=== PATIENT | male | born 1950 | race Caucasian/White ===

== ENCOUNTER → 2021-01-03 | Outpatient (CLI) | payer MEDICARE ==
--- NOTE | 2021-01-03 16:15 | CT ---
EXAMINATION TYPE: CT foot RT wo con DATE OF EXAM: 01/03/2021 COMPARISON: None HISTORY: Post op right metatarsal bunion sx CT DLP: 334.3 mGycm Automated exposure control for dose reduction was used. Unenhanced CT of the right foot was performed in the axial coronal and sagittal planes with bone and soft tissue window settings submitted. FINDINGS: Noted at the first tarsal metatarsal joint of postoperative changes of fusion with fixation plate and screws in place. There is adjacent soft tissue swelling noted. No significant callus formation is id entified at this time. No bony destructive process is seen. Postsurgical changes are also noted at th e base of the proximal phalanx of the great toe. There is moderate hallux valgus deformity seen at th e first metatarsal phalangeal joint. No evidence for acute fracture or dislocation. Intertarsal degen erative changes noted. Spur formation is seen. Soft tissue swelling noted to overlie the dorsum of th e foot. IMPRESSION: POSTOPERATIVE CHANGES DISCUSSED ABOVE WITHOUT EVIDENCE OF BONY DESTRUCTIVE PROCESS. NO SIGNIFICANT CALLUS FORMATION SEEN AT THE TARSAL METATARSAL SURGICAL SITE. HALLUX VALGUS DEFORMITY OF THE FIRST M ETATARSAL PHALANGEAL JOINT. DORSAL SOFT TISSUE SWELLING NOTED.
== END | disposition home or self-care (01) ==
LOC: RADCTMAIN 14:35
PROVIDERS: ATTEND Podiatrist
DX: M20.11 Hallux valgus (acquired), right foot (principal); M79.89 Other specified soft tissue disorders; Z98.890 Other specified postprocedural states

== ENCOUNTER 2022-05-01 09:38 | Day surgery (SDC) | payer MEDICARE ==
[2022-04-30 11:06] VITALS: BMI 27.7
[~2022-05-01 09:38] MED LIST: LACTATED RINGERS 1,000 ML IV SCH; LIDOCAINE 1% (10MG/ML) FOR IV START INTRADERMA PRN
[2022-05-01 09:59] VITALS: TEMP 97.6
[2022-05-01] MEDS ORDERED: PROPOFOL 10 MG/ML 20 ML VIAL IV ONE (10:45)
--- NOTE | 2022-05-01 10:59 | P.PCN ---
Date of Procedure: 05/01/22 Procedure(s) Performed: BRIEF HISTORY: Patient is a 71-year-old pleasant male scheduled for an elective colonoscopy as a part of screening for colorectal neoplasia. PROCEDURE PERFORMED: Colonoscopy with biopsy and snare polypectomy.. PREOPERATIVE DIAGNOSIS: Screening for colon cancer. IV sedation per Anesthesia. PROCEDURE: After informed consent was obtained, the patient, was brought into the endoscopy unit. IV sedation was administered by Anesthesia under continuous monitoring. Digital rectal examination was normal. Initially the Olympus CF-160 flexible video colonoscope was then inserted in the rectum, gradually advanced into the cecum without any difficulty. Careful examination was performed as the scope was gradually being withdrawn. Ileocecal valve and the appendiceal orifice were visualized and appeared normal. Prep was fair.. Mucosa of the cecum, ascending colon appeared normal. In the hepatic flexure there was a 1 segment of polyp removed by snare polypectomy. Mucosa of the transverse colon, appeared normal. Mucosa of the descending colon, sigmoid colon, and rectum changes of mild mucosal erythema and friability consistent with mild left sided colitis and biopsies were done from this area. Scattered sigmoid diverticulosis seen.. Retroflexion was performed in the rectum and no lesions were seen. The patient tolerated the procedure well. IMPRESSION: Mild mucosal erythema with friability noted in the rectum to the descending colon extending up to 60 cm from the anal verge consistent with left-sided colitis Scattered sigmoid diverticulosis 1 cm hepatic flexure polyp status post snare polypectomy RECOMMENDATIONS: Findings of this examination were discussed with the patient as well as his family.. He was advised to follow with the biopsy doesn't improve in office in one week. If the biopsy reveals adenoma he can have a repeat colonoscopy in 3 years
[2022-05-01 11:11] VITALS: RESP 20
[2022-05-01 11:37] VITALS: BP 128/70; PULSE 68
== END 2022-05-01 11:47 | disposition home or self-care (01) ==
LOC: ORWHC2ENDO 09:38
PROVIDERS: ATTEND Internal Medicine Gastroenterology
DX: Z12.11 Encounter for screening for malignant neoplasm of colon (principal); D12.3 Benign neoplasm of transverse colon; K52.9 Noninfective gastroenteritis and colitis, unspecified; K57.30 Diverticulosis of large intestine without perforation or abscess without bleeding; K21.9 Gastro-esophageal reflux disease without esophagitis
CPT/HCPCS: 88305; 45380; 45385; J2704

== ENCOUNTER → 2023-11-11 | Outpatient (CLI) | payer MEDICARE | END | disposition home or self-care (01) | LOC: LABWHC1 14:20 | PROVIDERS: ATTEND Internal Medicine Gastroenterology | DX: K51.50 Left sided colitis without complications (principal) | CPT/HCPCS: 83630; 83993; 87045; 87046; 87324 ==

== ENCOUNTER 2023-12-17 16:34 | Emergency (ER) | payer MEDICARE ==
[2023-12-17 16:54] VITALS: TEMP 97.8
[2023-12-17 17:14] LABS: Basophils # (A) 0.1 k/uL (0-0.2); Basophils % (A) 0 %; Eosinophils % (A) 0 %; HGB 13.6 gm/dL (13.0-17.5); Lymphocytes # (A) 2.4 k/uL (1.0-4.8); Lymphocytes % (A) 20 %; MCH 30.7 pg (25.0-35.0); MCHC 33.1 g/dL (31.0-37.0); MCV 92.6 fL (80.0-100.0); Mean Platelet Volume 6.8; Monocytes # (A) 0.3 k/uL (0-1.0); Monocytes % (A) 2 %; Neutrophils # (A) 9.2 k/uL (1.3-7.7); Neutrophils % (A) 76 %; Platelet Count 543 k/uL (150-450); RBC 4.43 m/uL (4.30-5.90); RDW 13.2 % (11.5-15.5); WBC 12.2 k/uL (3.8-10.6)
[2023-12-17 17:35] LABS: Partial Thromboplastin Time 26.4 sec (22.0-30.0); Prothrombin Time 10.6 sec (10.0-12.5)
--- NOTE | 2023-12-17 17:39 | ED ---
General Adult HPI - General Source: patient, RN notes reviewed Mode of arrival: ambulatory Limitations: no limitations <Vera Whiting - Last Filed: 12/17/23 17:38> <Jamee Quinones - Last Filed: 12/31/23 01:20> - General Chief complaint: Arrhythmia/Palpitations Stated complaint: Abn EKG, New onset AFIB Time Seen by Provider: 12/17/23 16:40 - History of Present Illness Initial comments: 73-year-old male presents emergency department for evaluation of right lower extremity swelling and new onset A. fib. Patient states that he was evaluated at his primary care providers office today for the lower extremity swelling and an EKG was performed. A. fib was found on EKG patient has no history of this. Denies chest pain, shortness of breath. (Vera Whiting) 73-year-old male presents the emergency department from his primary care office. States that he went into the office for right lower extremity swelling. States he has history of recurrent cellulitis and was attempting to obtain an antibiotic. In the office they were concerned for DVT. EKG was performed and demonstrated that the patient was in A-fib with a rapid rate. Because of these complaints they recommended that the patient come into the emergency department for further workup. Patient denies history of A-fib. He does not take any blood thinners. He denies history of DVT or PE. He denies any chest pain or shortness of breath. No other alleviating, precipitating or modifying factors (Jamee Quinones) - Related Data Home Medications Medication Instructions Recorded Confirmed Balsalazide Disodium 2,250 mg PO TID 12/17/23 12/17/23 Cephalexin [Keflex] 500 mg PO DIRECTED 12/17/23 12/17/23 predniSONE 5 mg PO DAILY 12/17/23 12/17/23 Previous Rx's Medication Instructions Recorded Apixaban [Eliquis] 5 mg PO BID #60 tab 12/17/23 Cephalexin [Keflex] 500 mg PO Q6HR 1 Days #28 cap 12/17/23 Allergies Allergy/AdvReac Type Severity Reaction Status Date / Time No Known Allergies Allergy Verified 12/17/23 21:23 Review of Systems ROS Other: All systems not noted in ROS Statement are negative. <Vera Whiting - Last Filed: 12/17/23 17:38> ROS Other: All systems not noted in ROS Statement are negative. <Jordy Quinonesah Peg - Last Filed: 12/31/23 01:20> ROS Statement: Those systems with pertinent positive or pertinent negative responses have been documented in the HPI. Past Medical History Past Medical History: GERD/Reflux Additional Past Medical History / Comment(s): HIATAL HERNIA History of Any Multi-Drug Resistant Organisms: None Reported Past Surgical History: Appendectomy, Hernia Repair Additional Past Surgical History / Comment(s): LEFT SHOULDER SURGERY, RIGHT FOOT SURGERY Past Anesthesia/Blood Transfusion Reactions: No Reported Reaction Past Psychological History: No Psychological Hx Reported Smoking Status: Former smoker - Past Family History Mother Family Medical History: Cancer Father Family Medical History: Cancer Additional Family Medical History / Comment(s): PROSTATE CANCER, LYMPH NODE CANCER <Vera Whiting - Last Filed: 12/17/23 17:38> General Exam Limitations: no limitations <Vera Whiting - Last Filed: 12/17/23 17:38> General appearance: alert, in no apparent distress Head exam: Present: atraumatic, normocephalic, normal inspection Eye exam: Present: normal appearance, PERRL, EOMI. Absent: scleral icterus, conjunctival injection, periorbital swelling ENT exam: Present: normal exam, mucous membranes moist Neck exam: Present: normal inspection. Absent: tenderness, meningismus, lymphadenopathy Respiratory exam: Present: normal lung sounds bilaterally. Absent: respiratory distress, wheezes, rales, rhonchi, stridor Cardiovascular Exam: Present: regular rate, irregular rhythm, normal heart sounds. Absent: systolic murmur, diastolic murmur, rubs, gallop, clicks GI/Abdominal exam: Present: soft, normal bowel sounds. Absent: distended, tenderness, guarding, rebound, rigid Extremities exam: Present: normal inspection, full ROM, normal capillary refill, pedal edema (right lower extremity has swelling and warmth). Absent: tenderness, joint swelling, calf tenderness Back exam: Present: normal inspection Neurological exam: Present: alert, oriented X3, CN II-XII intact Psychiatric exam: Present: normal affect, normal mood Skin exam: Present: warm, dry, intact, normal color. Absent: rash <Jamee Quinones - Last Filed: 12/31/23 01:20> - General Exam Comments Initial Comments: Visual Physical Exam Vital signs reviewed General: Well-appearing, nontoxic, no acute distress. Head: Normocephalic, atraumatic Eyes: PERRLA, EOMI ENT: Airway patent Chest: Nonlabored breathing Skin: No visual rash, normal skin tone Neuro: Alert and oriented 3 Musculoskeletal: No gross abnormalities (Vera Whiting) Course Vital Signs 12/17/23 12/17/23 16:37 22:47 Temperature 97.8 F Pulse Rate 89 66 Respiratory 16 20 Rate Blood Pressure 153/86 150/75 O2 Sat by Pulse 100 98 Oximetry Medical Decision Making - Lab Data Result diagrams: 12/17/23 16:56 <Vera Whitnig - Last Filed: 12/17/23 17:38> - Lab Data Result diagrams: 12/17/23 16:56 12/17/23 16:56 <Jamee Quinones - Last Filed: 12/31/23 01:20> - Medical Decision Making Quick note preformed by Vera Whiting PA-C (Vera Whiting) Was pt. sent in by a medical professional or institution ([facility], [employer], urgent care, hospital, or shelter...) When possible be specific @ -Patient was sent in by his primary care Did you speak to anyone other than the patient for history (EMS, parent, family, police, friend...)? What history was obtained from this source @ -No Did you review nursing and triage notes (agree or disagree)? Why? @ -I reviewed and agree with nursing and triage notes Were old charts reviewed (outside hosp., previous admission, EMS record, old EKG, old radiological studies, urgent care reports/EKG's, shelter records)? Report findings @ -No old charts were reviewed Differential Diagnosis (chest pain, altered mental status, abdominal pain women, abdominal pain men, vaginal bleeding, weakness, fever, dyspnea, syncope, headache, dizziness, GI bleed, back pain, seizure, CVA, palpatations, mental health, musculoskeletal)? @ -Differential Palpitations Ventricular arrhythmias, atrial arrhythmias, myocardial infarction, anemia, thyrotoxicosis, electrolyte imbalance, hypokalemia, pulmonary embolism, pulmonary disease, drugs, alcohol, anxiety, stress.... This is not meant to be an all-inclusive list. EKG interpreted by me (3pts min.). @ -yes and demonstrates new onset A. fib with a rate of 82. QRS 92. QTC of 395. No acute ST segment elevations or depressions X-rays interpreted by me (1pt min.). @ -Yes and demonstrates no acute process CT interpreted by me (1pt min.). @ -None done U/S interpreted by me (1pt. min.). @ -Yes and demonstrates no acute DVT What testing was considered but not performed or refused? (CT, X-rays, U/S, labs)? Why? @ -Echo however patient does not want to be admitted What meds were considered but not given or refused? Why? @ -None Did you discuss the management of the patient with other professionals (professionals i.e. , PA, [employer] TE[employer] MEMBER, lab, RT, psych nurse, social and human services assistant, custodial operations manager, teacher, admissions officer, spring encaser)? Give summary @ -No Was smoking cessation discussed for >3mins.? @ -No Was critical care preformed (if so, how long)? @ -No Were there social determinants of health that impacted care today? How? (Homelessness, low income, unemployed, alcoholism, drug addiction, transportation, low edu. Level, literacy, decrease access to med. care, custodial, rehab)? @ -No Was there de-escalation of care discussed even if they declined (Discuss DNR or withdrawal of care, Hospice)? DNR status @ -No What co-morbidities impacted this encounter? (DM, HTN, Smoking, COPD, CAD, Cancer, CVA, ARF, Chemo, Hep., AIDS, mental health diagnosis, sleep apnea, morbid obesity)? @ -Recurrent cellulitis Was patient admitted / discharged? Hospital course, mention meds given and route, prescriptions, significant lab abnormalities, going to OR and other pe rtinent info. @ -Upon arrival patient was placed into room 23. Thorough history and physical exam was performed. Laboratory studies were conducted. Ultrasound was performed the patient's leg which does not demonstrate DVT. Patient is in A-fib with a controlled rate. I did recommend admission for an echo and cardiology consultation. Patient is adamant that he wants to go home at this time. He has no contraindications to anticoagulation and therefore he will be placed on Eliquis. He is given a coupon card. He is given his first dose in the emergency department. Instructed to take the medication as directed and follow- up with his doctor. He must follow-up with a corporate operations compliance manager and have an echo performed. Return for any new or worsening symptoms. Patient additionally given a prescription for an antibiotic for his lower extremity. Patient discharged home in stable condition Undiagnosed new problem with uncertain prognosis? @ -Yes Drug Therapy requiring intensive monitoring for toxicity (Heparin, Nitro, Insulin, Cardizem)? @ -No Were any procedures done? @ -No Diagnosis/symptom? @ -Acute right lower extremity swelling, recurrent cellulitis, new onset A-fib with controlled rate Acute, or Chronic, or Acute on Chronic? @ -Acute Uncomplicated (without systemic symptoms) or Complicated (systemic symptoms)? @ -Complicated Side effects of treatment? @ -No Exacerbation, Progression, or Severe Exacerbation? @ -No Poses a threat to life or bodily function? How? (Chest pain, [place], [place], pneumonia, PE, COPD, DKA, ARF, appy, cholecystitis, CVA, Diverticulitis, Homicidal, Suicidal, threat to staff... and all critical care pts) @ -No (Jamee Quinones) - Lab Data Lab Results 12/17/23 12/17/23 12/17/23 Range/Units 16:56 16:56 16:56 WBC 12.2 H (3.8-10.6) k/uL RBC 4.43 (4.30-5.90) m/uL Hgb 13.6 (13.0-17.5) gm/dL Hct 41.0 (39.0-53.0) % MCV 92.6 (80.0-100.0) fL MCH 30.7 (25.0-35.0) pg MCHC 33.1 (31.0-37.0) g/dL RDW 13.2 (11.5-15.5) % Plt Count 543 H (150-450) k/uL MPV 6.8 Neutrophils % 76 % Lymphocytes % 20 % Monocytes % 2 % Eosinophils % 0 % Basophils % 0 % Neutrophils # 9.2 H (1.3-7.7) k/uL Lymphocytes # 2.4 (1.0-4.8) k/uL Monocytes # 0.3 (0-1.0) k/uL Eosinophils # 0.0 (0-0.7) k/uL Basophils # 0.1 (0-0.2) k/uL PT 10.6 (10.0-12.5) sec INR 1.0 (<1.2) APTT 26.4 (22.0-30.0) sec Sodium 135 L (137-145) mmol/L Potassium 4.8 (3.5-5.1) mmol/L Chloride 101 (98-107) mmol/L Carbon Dioxide 28 (22-30) mmol/L Anion Gap 6 mmol/L BUN 20 (9-20) mg/dL Creatinine 0.89 (0.66-1.25) mg/dL Est GFR (CKD-EPI)AfAm >90 (>60 ml/min/1.73 sqM) Est GFR (CKD-EPI)NonAf 86 (>60 ml/min/1.73 sqM) Glucose 113 H (74-99) mg/dL Calcium 9.4 (8.4-10.2) mg/dL Total Bilirubin 0.6 (0.2-1.3) mg/dL AST 27 (17-59) U/L ALT 26 (4-49) U/L Alkaline Phosphatase 115 (38-126) U/L Troponin I (0.000-0.034) ng/mL Total Protein 7.9 (6.3-8.2) g/dL Albumin 4.1 (3.5-5.0) g/dL 12/17/23 Range/Units 16:56 WBC (3.8-10.6) k/uL RBC (4.30-5.90) m/uL Hgb (13.0-17.5) gm/dL Hct (39.0-53.0) % MCV (80.0-100.0) fL MCH (25.0-35.0) pg MCHC (31.0-37.0) g/dL RDW (11.5-15.5) % Plt Count (150-450) k/uL MPV Neutrophils % % Lymphocytes % % Monocytes % % Eosinophils % % Basophils % % Neutrophils # (1.3-7.7) k/uL Lymphocytes # (1.0-4.8) k/uL Monocytes # (0-1.0) k/uL Eosinophils # (0-0.7) k/uL Basophils # (0-0.2) k/uL PT (10.0-12.5) sec INR (<1.2) APTT (22.0-30.0) sec Sodium (137-145) mmol/L Potassium (3.5-5.1) mmol/L Chloride (98-107) mmol/L Carbon Dioxide (22-30) mmol/L Anion Gap mmol/L BUN (9-20) mg/dL Creatinine (0.66-1.25) mg/dL Est GFR (CKD-EPI)AfAm (>60 ml/min/1.73 sqM) Est GFR (CKD-EPI)NonAf (>60 ml/min/1.73 sqM) Glucose (74-99) mg/dL Calcium (8.4-10.2) mg/dL Total Bilirubin (0.2-1.3) mg/dL AST (17-59) U/L ALT (4-49) U/L Alkaline Phosphatase (38-126) U/L Troponin I <0.012 (0.000-0.034) ng/mL Total Protein (6.3-8.2) g/dL Albumin (3.5-5.0) g/dL Disposition <Vera Whiting - Last Filed: 12/17/23 17:38> Is patient prescribed a controlled substance at d/c from ED?: No Time of Disposition: 22:28 <Jamee Quinones - Last Filed: 12/31/23 01:20> Clinical Impression: New onset a-fib, Leg swelling, Cellulitis Disposition: HOME SELF-CARE Condition: Stable Instructions (If sedation given, give patient instructions): A-fib (Atrial Fibrillation) (ED), Cellulitis (ED) Additional Instructions: Please take the antibiotic and blood thinner as directed. Call the cardiology office in the morning to make an appointment. You need to be seen by them because of your new onset A. fib. If you have any heart rate greater than 110, you need to return to the emergency department. If you have any type of head injury on the blood thinner, you need to be evaluated in the emergency depa rtment. Prescriptions: Apixaban [Eliquis] 5 mg PO BID #60 tab Cephalexin [Keflex] 500 mg PO Q6HR 1 Days #28 cap Referrals: Oscar Partida MD [Primary Care Provider] - 1-2 days Chadwick Foster DO [STAFF PHYSICIAN] - 1-2 days
--- NOTE | 2023-12-17 17:40 | XR ---
EXAMINATION TYPE: XR chest 2V DATE OF EXAM: 12/17/2023 5:19 PM CLINICAL INDICATION:Male, 73 years old with history of pain swelling; [facility] COMPARISON: Chest radiographs from 12/17/2023. TECHNIQUE: XR chest 2V Frontal and lateral views of the chest. FINDINGS: Lungs/Pleura: There is no evidence of pleural effusion, focal consolidation, or pneumothorax. Pulmonary vascularity: Unremarkable. Heart/mediastinum: Cardiomediastinal silhouette is unremarkable. Musculoskeletal: No acute osseous pathology. Other findings: None IMPRESSION: No acute cardiopulmonary disease/process.
[2023-12-17 18:21] LABS: ALT 26 U/L (4-49); AST 27 U/L (17-59); African American GFR (CKD) >90 (>60 ml/min/1.73 sqM); Albumin 4.1 g/dL (3.5-5.0); Alkaline Phosphatase 115 U/L (38-126); Anion Gap 6 mmol/L; Blood Urea Nitrogen 20 mg/dL (9-20); Calcium 9.4 mg/dL (8.4-10.2); Carbon Dioxide 28 mmol/L (22-30); Chloride 101 mmol/L (98-107); Glucose 113 mg/dL (74-99); Non-African American GFR(CKD) 86 (>60 ml/min/1.73 sqM); Potassium 4.8 mmol/L (3.5-5.1); Sodium 135 mmol/L (137-145); Total Bilirubin 0.6 mg/dL (0.2-1.3); Total Protein 7.9 g/dL (6.3-8.2)
--- NOTE | 2023-12-17 18:37 | US ---
EXAMINATION TYPE: US venous doppler duplex LE RT DATE OF EXAM: 12/17/2023 6:23 PM COMPARISON: NONE CLINICAL INDICATION: Male, 73 years old with history of pain swelling; Right calf/ankle swelling and discoloration x 1 week and getting worse. No hx of DVT. Not on blood thinners SIDE PERFORMED: Right TECHNIQUE: The lower extremity deep venous system is examined utilizing real time linear array sonog uli with graded compression, doppler sonography and color-flow sonography. VESSELS IMAGED: Common Femoral Vein Deep Femoral Vein Greater Saphenous Vein * Femoral Vein Popliteal Vein Small Saphenous Vein * Proximal Calf Veins (* superficial vessels) Right Leg: No evidence for DVT. Edema noted in distal calf and ankle IMPRESSION: Grayscale, color doppler, spectral doppler imaging performed of the deep veins of the lo wer extremities. There is normal flow, compressibility, vascular waveforms.
[2023-12-17] MEDS ORDERED: CEPHALEXIN 500 MG CAP PO STA (22:28)
[2023-12-17] MEDS ORDERED: APIXABAN 5 MG TAB PO STA (22:28)
[2023-12-17 22:51] VITALS: BP 150/75; PULSE 66; RESP 20
== END 2023-12-17 22:50 | disposition home or self-care (01) ==
LOC: EC 16:34
DX: I48.91 Unspecified atrial fibrillation (principal); M79.89 Other specified soft tissue disorders; L03.115 Cellulitis of right lower limb; I45.10 Unspecified right bundle-branch block; Z87.891 Personal history of nicotine dependence
CPT/HCPCS: 36415; 71046; 80053; 84484; 85025; 85610; 85730; 93005; 99285

== ENCOUNTER 2024-03-08 11:31 | Day surgery (SDC) | payer MEDICARE ==
[~2024-03-08 11:31] MED LIST changes: +ALPRAZolam 0.25 MG TAB PO PRN; +ATORVASTATIN 80 MG TAB PO STA; +HEPARIN SODIUM,PORCINE (1 ML) 2,500 UNIT in SODIUM CHLORIDE 0.9% 250 ML IRRIGATION PRN; +HEPARIN SODIUM,PORCINE 10,000 UNIT in SODIUM CHLORIDE 0.9% 1,000 ML IRRIGATION PRN; -LACTATED RINGERS 1,000 ML IV SCH; -LIDOCAINE 1% (10MG/ML) FOR IV START INTRADERMA PRN; +NITROGLYCERIN SL TABS 0.4 MG TAB SUBLINGUAL PRN
[2024-03-08] MEDS: ASPIRIN 325 MG TAB PO STA (11:56)
[2024-03-08] MEDS: SODIUM CHLORIDE 0.9% 1,000 ML in EMPTY BAG 1 BAG IV SCH (11:56)
[2024-03-08] MEDS: ALPRAZolam 0.5 MG TAB PO PRN (12:01)
[2024-03-08] MEDS: SODIUM CHLORIDE 0.9% 1,000 ML IV ONE ×2 (12:15→13:15)
[2024-03-08 12:19] VITALS: RESP 16; TEMP 97.4
[2024-03-08 12:19] LABS: Basophils % (A) 0 %; Eosinophils # (A) 0.1 k/uL (0-0.7); Eosinophils % (A) 1 %; HCT 40.5 % (39.0-53.0); Lymphocytes # (A) 2.8 k/uL (1.0-4.8); Lymphocytes % (A) 31 %; MCH 29.7 pg (25.0-35.0); MCV 92.8 fL (80.0-100.0); Mean Platelet Volume 7.1; Monocytes # (A) 0.5 k/uL (0-1.0); Monocytes % (A) 5 %; Neutrophils # (A) 5.3 k/uL (1.3-7.7); Neutrophils % (A) 60 %; Platelet Count 359 k/uL (150-450); RBC 4.37 m/uL (4.30-5.90); RDW 14.1 % (11.5-15.5); WBC 8.8 k/uL (3.8-10.6)
[2024-03-08 12:45] LABS: African American GFR (CKD) 86 (>60 ml/min/1.73 sqM); Anion Gap 7 mmol/L; Blood Urea Nitrogen 16 mg/dL (9-20); Calcium 8.9 mg/dL (8.4-10.2); Carbon Dioxide 26 mmol/L (22-30); Chloride 106 mmol/L (98-107); Glucose 101 mg/dL (74-99); Non-African American GFR(CKD) 75 (>60 ml/min/1.73 sqM); Sodium 139 mmol/L (137-145)
[2024-03-08] MEDS ORDERED: fentaNYL (PF) 50 MCG/ML 2 ML AMP ONE (12:52)
[2024-03-08] MEDS ORDERED: VERAPAMIL 2.5 MG/ML 2 ML AMP ONE ×2 (12:52→13:20)
[2024-03-08] MEDS: fentaNYL (PF) 50 MCG/ML 2 ML AMP IVP ONE (13:18)
[2024-03-08] MEDS: LIDOCAINE 1% INJ 10MG/ML (5 ML VIAL-PF) SQ ONE (13:18)
[2024-03-08] MEDS: MIDAZOLAM 2 MG/2 ML VIAL IVP ONE (13:18)
[2024-03-08] MEDS: VERAPAMIL SYRINGE (5 MG/10 ML) INTRAARTER ONE (13:21)
[2024-03-08] MEDS: HEPARIN SODIUM 1,000 UN/ML (10ML VL) IVP ONE (13:24)
--- NOTE | 2024-03-08 13:40 | P.CARDCATH ---
Description of Procedure: PROCEDURES PERFORMED: Left heart catheterization, bilateral coronary angiography, ultrasound guided arterial access INDICATION: abnormal stress test CONSENT:I have discussed the risks, benefits and alternative therapies for the above-mentioned procedure and for both sedation/analgesia as well as necessary blood product administration, if indicated, as they pertain to this patient. The patient has indicated understanding and acceptance of the risks and procedures discussed. PROCEDURE: After the risks, benefits and alternatives of the above mentioned procedure explained in detail with the patient, informed consent was obtained. Patient was taken to the catheterization lab and prepped and draped in usual fashion. Ultrasound guidance was used to assess for arterial access. 1% lidocaine was used to anesthetize the right radial artery. A 6-Scottish sheath was placed in the right radial artery using modified Seldinger technique and ultrasound guidance. Left coronary angiography was performed with a 5-Scottish JL 3.5 catheter and right coronary angiography was performed with a 5-Scottish AR2 catheter in various views. A 5-Scottish FR5 catheter was inserted into the left ventricle and pressure measurements were obtained. The right radial sheath was removed and a TR band was placed with hemostasis achieved. The patient to lerated the procedure well. Patient was transported back to the post catheterization holding area in stable condition. Conscious Sedation: Patient was monitored under the direct supervision of myself for conscious sedation using Versed and fentanyl for a total duration of 22 minutes HEMODYNAMICS: Aorta: 96/59 LV: 93/2, LVEDP 7 SELECTIVE CORONARY ARTERIOGRAPHY: LEFT MAIN: The left main is a large caliber vessel which bifurcates into the LAD and circumflex. There is no significant stenosis. LEFT ANTERIOR DESCENDING CORONARY ARTERY: LAD is a large caliber vessel which wraps around to the apex. There are mild luminal irregularities of the LAD up to 10% stenosis. LEFT CIRCUMFLEX CORONARY ARTERY: Left circumflex is a moderate caliber vessel with mild luminal irregularities. RIGHT CORONARY ARTERY: The right coronary artery is a large caliber vessel which gives off a PDA and PLV branch and is the dominant vessel. There is no significant stenosis. FINAL IMPRESSION: 1. Relatively normal coronary arteries other than mild luminal irregularities of the LAD and circumflex 2. Normal left sided filling pressures PLAN: 1. Aggressive risk factor modification per most recent ACC/AHA guidelines. 2. Follow-up in the office in 1-2 weeks.
[2024-03-08 17:40] VITALS: BP 108/72; PULSE 55
== END 2024-03-08 17:23 | disposition home or self-care (01) ==
LOC: CATHCVL 11:31
PROVIDERS: ATTEND Internal Medicine
DX: I48.19 Other persistent atrial fibrillation (principal); I11.0 Hypertensive heart disease with heart failure; I50.33 Acute on chronic diastolic (congestive) heart failure; Z79.01 Long term (current) use of anticoagulants; Z79.899 Other long term (current) drug therapy
CPT/HCPCS: 93458; 76937; 80048; 85025; C1769 ×2; C1894; J2250; J2001; J3010; J1644